=== PATIENT | female | born 1995 | race Caucasian/White ===

== ENCOUNTER 2024-04-04 11:25 | Emergency (ER) | payer OTHER, SELFPAY ==
[2024-04-04 11:36] VITALS: BP 121/93
--- NOTE | 2024-04-04 11:50 | ED.GENMED ---
History of Present Illness
General
Chief Complaint: Vomiting Blood
Source: patient
Exam Limitations: none
Time Seen by Provider: 04/04/24 11:48
Nursing documentation reviewed up to this point in time: agreed with
History of Present Illness
History of Present Illness:
28-year-old female with history of asthma, anxiety, depression presenting emergency department today with concerns of 1 episode of hematemesis. Patient reports that she has asthma and will often have episodes of vomiting due to mucus buildup.
Patient is controlled on 2 daily maintenance inhalers and uses albuterol as needed. Patient reports that she has had this coughing and subsequent vomiting for a week but today notes that there were some specks of pink and red in her vomit. Patient
reports that this has happened to her in the past that has resolved on its own. Patient denies any recent daily NSAID use. Patient denies any alcohol use. Patient denies any abdominal pain. Patient denies hx of GERD. Patient denies chest pain,
dizziness, lightheadedness, shortness of breath, fevers or chills. Patient denies any constipation or diarrhea. Patient denies dark tarry stools, rectal bleeding. Patient denying medication for nausea at this time.
Past History
Past History
ED Past Medical History: Psychiatric (Anxiety, depression, suicidal ideation) and Other (Headache)
ED Past Surgical History: None
Social History
Tobacco: Non-smoker
Alcohol: None
Drug: None
Review of Systems
Review of Systems
All Other Systems: ROS reviewed and negative except as documented in HPI and ROS
Phy Exam
Physical Exam
Physical Exam:
General: Patient is well appearing and in no acute distress; non-toxic
Skin: Warm and dry, no rashes or lesions
Head: Normocephalic, atraumatic
Eyes: Sclera non-icteric. EOMs intact. PERRLA.
Mouth: No intraoral lesions, uvula midline, no pharyngeal erythema
Cardiac: Regular rate and rhythm
Pulm: Increased respiratory rate, equal breath sounds bilaterally with no wheezes, rales, rhonchi.
Abdomen: No abdominal tenderness to palpation.
Neuro: CN II-XII intact, no focal neurologic deficits.
Psychiatric: Appropriate mood and affect.
Course
Orders/Labs/Results
Orders:
Orders
04/04/24 11:54
Test Result ONCE
04/04/24 12:20
Complete Blood Count/With Diff Urgent
Comprehensive Metabolic Panel Urgent
HCG, Serum Qualitative Screen Urgent
Abnormal Lab Results
04/04/24
12:20
Hct 36.2 L %
(37.0-47.0)
MCV 79.0 L fL
(81.0-99.0)
RDW 14.8 H %
(11.5-14.5)
Absolute Monos (auto) 0.7 H 10^3/uL
(0.1-0.6)
Carbon Dioxide 21 L mmol/L
(22-30)
Glucose 100 H mg/dl
(70-99)
04/04/24 12:20
04/04/24 12:20
Vital Signs
Initial and Last Documented VS:
Initial Vital Signs
Temp Pulse Resp BP Pulse Ox
98.3 F 98 18 121/93 97
04/04/24 11:36 04/04/24 11:36 04/04/24 11:36 04/04/24 11:36 04/04/24 11:36
Last Documented Vital Signs
Temp Pulse Resp BP Pulse Ox
98.3 F 83 17 121/93 96
04/04/24 11:36 04/04/24 13:00 04/04/24 13:00 04/04/24 11:36 04/04/24 13:00
MDM/Problems Addressed
Differential Diagnosis Includes:
ddx include asthma exacerbation, GERD, Kaitlin Emmanuel tear, gastritis, duodenitis
MDM/Problems Addressed:
Hematemesis:
28-year-old female with history of asthma, anxiety, depression presenting emergency department today with concerns of 1 episode of hematemesis. Patient reports that she has asthma and will often have episodes of vomiting due to mucus buildup and
persistent coughing. Patient had multiple episodes this week but did not have hematemesis until today. Patient notes specks of blood mixed with vomitus. Patient denies abdominal pain, dark tarry stools, chest pain. CMP/CBC unremarkable, patient VSS.
I suspect patient is likely suffering from Kaitlin Emmanuel Tear from persistent coughing and vomiting, or perhaps tracheal irritation from GERD. Will start patient on PPI trial and have her follow up with her primary. Patient stable for discharge.
Chronic conditions affecting care:
asthma
Acute Exacerbation and/or Progression of Chronic Illness:
n/a
*Pulse Oximetry
Patient hypoxic: no
*Critical Care Note
Total Time (30-74mins, 75-104mins- exclusive of procedures): Not Applicable
Data Reviewed
Review of Other/Old Records Reveals: Records (reviewed most recent ER physician documentation where patient was seen for back pain/cauda equina rule out)
Source: patient and records
Prescriptions/Medications Considered But Not Given:
n/a
Further Testing Considered But Not Given:
considered CXR however patient has no chest pain, no belly pain
Patient Management
Escalation/DeEscalation of care consider admission/obs:
Reviewed case with my attending Dr. Schwarz who also evaluated patient and was in agreement with plan. Patient stable for discharge.
ED Attending Note
-
Portions of this chart may have been created with voice recognition software.� Occasional wrong word or��sound alike� substitutions may have occurred due to the inherent limitations of voice recognition software.
Discharge Plan
Departure
Patient Disposition: Home (Routine Discharge)
Date of Disposition: 04/04/24
Time of Disposition: 13:01
Patient with high blood pressure during this ER visit?: No
Condition: Good
Discharge Problem:
Bloody emesis
Instructions: Nausea and Vomiting, Adult (DC), Acid reflux and GERD in adults
Prescriptions:
New
pantoprazole 20 mg tablet,delayed release (DR/EC)
20 mg PO DAILY Qty: 30 0RF
No Action
methylprednisolone [Medrol (Elias)] 4 MG tablets,dose pack
4 tab PO . DIRECT Qty: 1 0RF
Referrals:
Oc Suarez MD [Family Provider] -
Activity Restrictions/Additional Instructions:
Please start taking Pantoprazole. This medication has been sent to your pharmacy. Please start taking one tablet once daily for 4 week trial. Please follow up with your primary care provider in a few weeks to reassess your symptoms.
Please return to the emergency department should you develop chest pain, shortness of breath, an acute worsening of your symptoms, dark tarry stools, abdominal pain, fevers or chills, or any other signs or symptoms concerning to you.
Interventions
Interventions:
*Risk Screen - Suicide Last Done: 04/04/24 11:36
*General Assessment Last Done: 04/04/24 11:36
*Neglect/Abuse Screening Last Done: 04/04/24 11:36
ED- Fall Risk Assessment Last Done: 04/04/24 12:07
*ED COVID-19 Vaccine History Last Done: 04/04/24 11:36
*Nursing Disposition Last Done: 04/04/24 13:17
AM-Lapduy-Tjjwkdyjey Assessment Last Done: 04/04/24 12:07
ED- Cardiac Assessment Last Done: 04/04/24 12:07
ED- Pulmonary Assessment Last Done: 04/04/24 12:07
Discharge Date and Time
Discharge Date/Time: 04/04/24 13:18
Print Language: YAKUT
[2024-04-04 12:07] VITALS: BMI 57.2
[2024-04-04 12:31] LABS: % Basophils 0.6 % (0-2); % Eosinophils 1.1 % (0-6); % Immature Granulocytes 0.3 % (0-0.5); % Monocytes 7.7 % (1.7-9.3); % Neutrophils 59.3 % (42.2-75.2); Absolute Basophils 0.1 10^3/uL (0-0.2); Absolute Eosinophils 0.1 10^3/uL (0-0.7); Absolute Lymphocytes 2.7 10^3/uL (1.2-3.4); Absolute Monocytes 0.7 10^3/uL (0.1-0.6); Absolute Neutrophils 5.2 10^3/uL (1.4-6.5); Hematocrit 36.2 % (37.0-47.0); Hemoglobin 12.5 g/dL (12.0-16.0); Mean Corp Hgb Conc. 34.5 g/dL (33.0-37.0); Mean Corpuscular Hgb 27.3 pg (27.0-31.0); Mean Platelet Volume 8.5 fL (7.4-10.4); Nucleated Red Blood Cells % 0 %; Platelet Count 288 10^3/uL (130-400); Red Blood Cell Count 4.58 10^6/uL (4.20-5.40); Red Cell Dist. Width 14.8 % (11.5-14.5); White Blood Cell Count 8.8 10^3/uL (4.8-10.8)
[2024-04-04 12:47] LABS: HCG, Serum Qualitative Screen Negative
[2024-04-04 12:52] LABS: ALT (SGPT) 13 U/L (0-35); AST (SGOT) 26 U/L (14-36); Albumin 4.6 g/dl (3.5-5.0); Alkaline Phosphatase 73 U/L (38-126); Blood Urea Nitrogen 9 mg/dl (7-17); Calcium 9.7 mg/dl (8.4-10.2); Carbon Dioxide 21 mmol/L (22-30); Chloride 105 mmol/L (98-107); Estimated Creatinine Clearance > 125 ml/min; Glucose 100 mg/dl (70-99); Potassium 4.2 mmol/L (3.5-5.1); Sodium 139 mmol/L (135-145); Total Bilirubin 0.4 mg/dl (0.2-1.3); Total Protein 6.9 g/dl (6.3-8.2); eGFR > 60.00
== END 2024-04-04 13:18 | disposition home or self-care (01) ==
LOC: EMR 11:25
PROVIDERS: Physician Assistant; EMERGENCY PHYSICIAN Emergency Medicine; FAMILY PHYSICIAN Internal Medicine
DX: K92.0 Hematemesis (principal); J45.909 Unspecified asthma, uncomplicated; F41.9 Anxiety disorder, unspecified; F32.A Depression, unspecified
CPT/HCPCS: 99283; 80053; 84703; 85025